=== PATIENT | male | born 1960 | race Caucasian/White ===

== ENCOUNTER 2017-11-29 17:11 | Emergency (ER) | payer OTHER | END 2017-11-29 18:48 | disposition home or self-care (01) | LOC: FTE 17:11 | DX: K40.90 Unilateral inguinal hernia, without obstruction or gangrene, not specified as recurrent (principal); R21 Rash and other nonspecific skin eruption | CPT/HCPCS: 99282; Z7502 ==

== ENCOUNTER 2018-08-21 10:20 | Emergency (ER) | payer OTHER ==
[2018-08-21] MEDS ORDERED: HALOPERIDOL 5 MG INJ (11:05)
[2018-08-21] MEDS ORDERED: LORAZEPAM 2 MG INJ (11:05)
[2018-08-21] MEDS: IBUPROFEN 800 MG TAB PO (12:26)
== END 2018-08-21 12:30 | disposition home or self-care (01) ==
LOC: E/R 10:20
DX: K40.91 Unilateral inguinal hernia, without obstruction or gangrene, recurrent (principal); F17.210 Nicotine dependence, cigarettes, uncomplicated
CPT/HCPCS: 99283; J1630

== ENCOUNTER 2018-11-29 09:02 | Day surgery (SDC) | payer OTHER ==
[~2018-11-29 09:02] MED LIST: CEFAZOLIN 1 GM/50 ML (PMX) 50 ML IVPB; SOD CHLORIDE 0.9% 1,000 ML IV
[2018-11-29] MEDS ORDERED: SOD CHLORIDE 0.9% 1,000 ML IV (10:00)
[2018-11-29] MEDS: BUPIVACAINE 0.5%/EPI (SDV) 30 ML INJ (13:40)
[2018-11-29] MEDS: POLYMYXIN/BACITRACIN 1L IRRIG (13:40)
[2018-11-29] MEDS ORDERED: MIDAZOLAM 1 MG/ML 2 ML INJ (15:49)
[2018-11-29] MEDS ORDERED: FENTAnyl 50 MCG/ML VIAL (15:49)
[2018-11-29] MEDS ORDERED: ONDANSETRON 4 MG INJ (15:59)
[2018-11-29] MEDS ORDERED: PROPOFOL 20 ML (15:59)
[2018-11-29] MEDS ORDERED: LIDOCAINE 100 MG SYRINGE (15:59)
[2018-11-29] MEDS ORDERED: HYDROmorphONE 1 MG/5 ML IV SYRINGE IV ×2 (16:30)
[2018-11-29] MEDS ORDERED: OXYCODONE/ACETAMINOPHEN (5/325) TAB PO (16:30)
[2018-11-29] MEDS ORDERED: DIPHENHYDRAMINE 50 MG INJ IV (16:30)
[2018-11-29] MEDS ORDERED: hydrALAzine 20 MG INJ IV (16:30)
[2018-11-29] MEDS ORDERED: ALBUTEROL 0.083% (NEB) 2.5 MG/3 ML AMP HHN (16:30)
[2018-11-29] MEDS ORDERED: FENTAnyl 50 MCG/ML VIAL IV ×2 (16:30)
[2018-11-29] MEDS ORDERED: IPRATROPIUM (NEB) 0.5 MG/2.5 ML AMP HHN (16:30)
[2018-11-29] MEDS ORDERED: LABETALOL HCL 20MG INJ IV (16:30)
[2018-11-29] MEDS ORDERED: EPHEDrine 25 MG/5 ML SYG IV (16:30)
[2018-11-29] MEDS: ONDANSETRON 4 MG INJ IV (17:16)
[2018-11-29] MEDS: HYDROmorphONE 1 MG/5 ML IV SYRINGE IV (17:21)
[2018-11-29] MEDS: MEPERIDINE 25 MG INJ IV (17:21)
[2018-11-29] MEDS: FENTAnyl 50 MCG/ML VIAL IV (17:22)
[2018-11-29] MEDS: OXYCODONE/ACETAMINOPHEN (5/325) TAB PO (18:15)
== END 2018-11-29 18:47 | disposition home or self-care (01) ==
LOC: SDS 09:02
DX: K40.30 Unilateral inguinal hernia, with obstruction, without gangrene, not specified as recurrent (principal)
CPT/HCPCS: 49505; 88302